=== PATIENT | female | born 1960 | race Caucasian/White ===

== ENCOUNTER → 2022-03-16 | Outpatient (REF) | payer OTHER ==
[2022-03-16 12:12] LABS: BASO % 0.8 % (0.0-1.0); EOS # 0.4 10^3/uL (0.0-0.5); EOS % 7.2 % (0.0-3.0); HEMATOCRIT 44.4 % (36.0-47.0); HEMOGLOBIN 14.8 g/dl (12.0-15.5); LYMPH # 1.6 10^3/uL (1.5-5.0); LYMPH % 29.9 % (24.0-44.0); MEAN CORPUSCULAR HEMOGLOBIN 30.2 pg (27.0-33.0); MEAN CORPUSCULAR HGB CONC 33.3 g/dl (32.0-36.5); MEAN CORPUSCULAR VOLUME 90.6 fl (80.0-96.0); MONO # 0.4 10^3/uL (0.0-0.8); MONO % 8.3 % (2.0-8.0); NEUTROPHILS # 2.9 10^3/uL (1.5-8.5); NEUTROPHILS % 53.8 % (36.0-66.0); PLATELET COUNT, AUTOMATED 188 10^3/uL (150-450); WHITE BLOOD COUNT 5.3 10^3/uL (4.0-10.0)
[2022-03-16 15:16] LABS: ALBUMIN 3.8 GM/DL (3.2-5.2); ALT/SGPT 34 U/L (12-78); BILIRUBIN,TOTAL 0.5 MG/DL (0.2-1.0); BLOOD UREA NITROGEN 15 MG/DL (7-18); CALCIUM LEVEL 9.5 MG/DL (8.8-10.2); CARBON DIOXIDE LEVEL 28 MEQ/L (21-32); CHLORIDE LEVEL 109 MEQ/L (98-107); CHOLESTEROL LEVEL 187 MG/DL (<200); CHOLESTEROL RISK RATIO 3.339 (<5); CREATININE FOR GFR 0.88 MG/DL (0.55-1.30); GLOMERULAR FILTRATION RATE > 60.0 (>45); GLUCOSE, FASTING 84 MG/DL (70-100); HDL CHOLESTEROL 56 MG/DL (>40); LDL CHOLESTEROL 107 MG/DL (<100); MAGNESIUM LEVEL 2.1 MG/DL (1.8-2.4); NON-HDL-C 131 MG/DL; POTASSIUM SERUM 4.3 MEQ/L (3.5-5.1); SODIUM LEVEL 144 MEQ/L (136-145); TOTAL PROTEIN 6.5 GM/DL (6.4-8.2); TRIGLYCERIDES LEVEL 119 MG/DL (<150)
[2022-03-16 15:17] LABS: HEMOGLOBIN A1c 5.3 %
[2022-03-18 14:10] LABS: H PYLORI SERUM QUANT IGA <9.0 units (0.0-8.9); H PYLORI SERUM QUANT IGM <9.0 units (0.0-8.9); H PYLORI SERUM QUANT IgG ABY 0.27 (0.00-0.79); VITAMIN D 1,25 DIHYDROXY 72.7 pg/mL (24.8-81.5)
== END ==
LOC: M SFHCCLAY 09:07
PROVIDERS: ATTEND Family Medicine
DX: E78.2 Mixed hyperlipidemia (principal); R73.01 Impaired fasting glucose; R10.13 Epigastric pain; K21.00 Gastro-esophageal reflux disease with esophagitis, without bleeding; Z13.21 Encounter for screening for nutritional disorder

== ENCOUNTER → 2022-04-13 | Outpatient (REF) | payer OTHER | LOC: M SFHCCLAY 10:42 | PROVIDERS: ATTEND Family Medicine | DX: Z13.21 Encounter for screening for nutritional disorder (principal) ==

== ENCOUNTER → 2022-05-06 | Outpatient (CLI) | payer BC | LOC: M CLY 11:46 | PROVIDERS: ATTEND Physician Assistant | DX: R50.9 Fever, unspecified (principal) ==

== ENCOUNTER → 2022-09-20 | Outpatient (REF) | payer OTHER ==
[~2022-09-20] MED LIST: AJOV225I SC; ALPR0.5T3 PO; BOTO10VL INJ; COQ-100C5 PO; CVS1CAP2 PO; CYCL-707 PO; IBAN150T6 PO; IPRA6SP; LOTE0.5S OU; MAGN500T2 PO; OMEP40CA4 PO; ONDA8TAB8 PO; OSTETAB2 PO; REST0.05 OU; ROSU20TA5 PO; TEMA30CA PO; UBRO100T PO; VITMTA PO; ZOMI5TAB12 PO; medical marijuana; vitamin b2 PO
== END ==
LOC: M SFHCCLAY 09:14
PROVIDERS: ATTEND Physician Assistant
DX: R30.0 Dysuria (principal)

== ENCOUNTER → 2022-11-02 | Outpatient (CLI) | payer BC, OTHER | LOC: M PLAIMG 13:06 | PROVIDERS: ATTEND Internal Medicine Pulmonary Disease | DX: R05.9 Cough, unspecified (principal) ==

== ENCOUNTER 2023-02-01 07:45 | Day surgery (SDC) | payer BC, OTHER ==
[~2023-02-01] VITALS: Ht 170.2 cm; Wt 64.3 kg
[~2023-02-01 07:45] MED LIST changes: +COQ150CH PO; +LIDOCAINE 2% 100MG/5ML SDV (FOR ANES.) As Ordered ONE; +NS 1,000 ML IV ONE; -ROSU20TA5 PO; +ROSU20TA61 PO; +fentaNYL 100 MCG/2 ML INJECTION As Ordered ONE; +propofoL 200 MG/20 ML VIAL As Ordered ONE
[2023-02-01] MEDS ORDERED: LIDOCAINE 2% 100MG/5ML SDV (FOR ANES.) As Ordered ONE (08:17)
[2023-02-01] MEDS ORDERED: ONDANSETRON 4MG 2ML VIAL As Ordered ONE (08:17)
[2023-02-01] MEDS ORDERED: fentaNYL 100 MCG/2 ML INJECTION As Ordered ONE (08:17)
[2023-02-01] MEDS ORDERED: propofoL 500 MG/50 ML VIAL As Ordered ONE (08:17)
[2023-02-01] MEDS ORDERED: ePHEDrine SULFATE 25 MG/5 ML(5MG/ML) SYRINGE As Ordered ONE (09:08)
[2023-02-01 09:43] VITALS: TEMP 97.5
[2023-02-01 10:17] VITALS: BP 104/65; O2SAT 97
== END 2023-02-01 10:19 | disposition home or self-care (01) ==
LOC: M OPP 07:45
PROVIDERS: ATTEND Internal Medicine Gastroenterology
DX: Z12.11 Encounter for screening for malignant neoplasm of colon (principal); Z80.0 Family history of malignant neoplasm of digestive organs; K64.0 First degree hemorrhoids; K57.30 Diverticulosis of large intestine without perforation or abscess without bleeding; R12 Heartburn; K44.9 Diaphragmatic hernia without obstruction or gangrene; I48.91 Unspecified atrial fibrillation; J45.909 Unspecified asthma, uncomplicated; K21.9 Gastro-esophageal reflux disease without esophagitis; Z88.0 Allergy status to penicillin; Z88.2 Allergy status to sulfonamides; Z88.5 Allergy status to narcotic agent; Z88.8 Allergy status to other drugs, medicaments and biological substances
CPT/HCPCS: 43239; 45378; 88305; J2405; J3010

== ENCOUNTER → 2023-02-27 | Outpatient (REF) | payer OTHER ==
[~2023-02-27] MED LIST changes: -LIDOCAINE 2% 100MG/5ML SDV (FOR ANES.) As Ordered ONE; -NS 1,000 ML IV ONE; -fentaNYL 100 MCG/2 ML INJECTION As Ordered ONE; -propofoL 200 MG/20 ML VIAL As Ordered ONE
[2023-02-27 13:09] LABS: HEMATOCRIT 40.8 % (36.0-47.0); HEMOGLOBIN 13.7 g/dl (12.0-15.5); MEAN CORPUSCULAR HEMOGLOBIN 29.7 pg (27.0-33.0); MEAN CORPUSCULAR HGB CONC 33.6 g/dl (32.0-36.5); MEAN CORPUSCULAR VOLUME 88.5 fl (80.0-96.0); PLATELET COUNT, AUTOMATED 154 10^3/uL (150-450); RED BLOOD COUNT 4.61 10^6/uL (4.00-5.40); WHITE BLOOD COUNT 5.2 10^3/uL (4.0-10.0)
[2023-02-27 13:23] LABS: HEMOGLOBIN A1c 4.9 % (4.0-6.0)
[2023-02-27 13:55] LABS: ALBUMIN 3.7 G/DL (3.2-5.2); ALKALINE PHOSPHATASE 38 U/L (46-116); ALT/SGPT 43 U/L (7.0-40); AST/SGOT 39 U/L (<34); BILIRUBIN,TOTAL 0.5 MG/DL (0.3-1.2); BLOOD UREA NITROGEN 14 MG/DL (9-23); CALCIUM LEVEL 9.1 MG/DL (8.3-10.6); CARBON DIOXIDE LEVEL 28 MMOL/L (20-31); CHLORIDE LEVEL 110 MMOL/L (98-107); CHOLESTEROL LEVEL 145 MG/DL (<200); CHOLESTEROL RISK RATIO 2.76 (<5); CREATININE FOR GFR 0.85 MG/DL (0.55-1.30); GLOMERULAR FILTRATION RATE > 60.0 (>45); GLUCOSE, FASTING 72 MG/DL (74-106); HDL CHOLESTEROL 52.4 MG/DL (>40); LDL CHOLESTEROL 78.4 MG/DL (<100); MAGNESIUM LEVEL 1.8 MG/DL (1.8-2.4); NON-HDL-C 92.6 MG/DL; POTASSIUM SERUM 4.2 MMOL/L (3.5-5.1); SODIUM LEVEL 141 MMOL/L (136-145); TOTAL PROTEIN 6.1 G/DL (5.7-8.2); TRIGLYCERIDES LEVEL 71 MG/DL (<150)
== END ==
LOC: M SFHCCLAY 08:53
PROVIDERS: ATTEND Family Medicine
DX: E78.2 Mixed hyperlipidemia (principal); K21.00 Gastro-esophageal reflux disease with esophagitis, without bleeding; R73.01 Impaired fasting glucose

== ENCOUNTER → 2023-03-28 | Outpatient (REF) | payer MEDICARE, BC, OTHER | LOC: M SFHCDERM 14:08 | PROVIDERS: ATTEND Physician Assistant | DX: L82.0 Inflamed seborrheic keratosis (principal) ==

== ENCOUNTER → 2023-04-03 | Outpatient (REF) | payer MEDICARE, OTHER | LOC: M SFHCWAGY 17:34 | PROVIDERS: ATTEND Nurse Practitioner Family | DX: Z12.4 Encounter for screening for malignant neoplasm of cervix (principal); N95.2 Postmenopausal atrophic vaginitis | CPT/HCPCS: 87624; G0123 ==

== ENCOUNTER → 2023-04-11 | Outpatient (CLI) | payer MEDICARE, BC, OTHER | LOC: M PLAIMG 10:53 | PROVIDERS: ATTEND Family Medicine | DX: M47.26 Other spondylosis with radiculopathy, lumbar region (principal) ==

== ENCOUNTER → 2023-06-02 | Outpatient (REF) | payer MEDICARE, BC, OTHER | LOC: M SFHCCLAY 10:33 | PROVIDERS: ATTEND Family Medicine | DX: Z53.9 Procedure and treatment not carried out, unspecified reason (principal) ==

== ENCOUNTER → 2024-05-06 | Outpatient (CLI) | payer MEDICARE, BC ==
[~2024-05-06] MED LIST changes: +IBAN150T10 PO; -IBAN150T6 PO; +ONDA-284 PO; -ONDA8TAB8 PO; -ROSU20TA61 PO; +ROSU20TA86 PO
== END ==
LOC: M WHC 15:10
PROVIDERS: ATTEND Nurse Practitioner Family
DX: Z13.820 Encounter for screening for osteoporosis (principal); M85.89 Other specified disorders of bone density and structure, multiple sites

== ENCOUNTER → 2024-07-18 | Outpatient (REF) | payer MEDICARE, BC ==
[2024-07-18 12:39] LABS: BASO % 0.6 % (0.0-1.0); EOS # 0.2 10^3/uL (0.0-0.5); EOS % 4.2 % (0.0-3.0); HEMATOCRIT 44.7 % (36.0-47.0); HEMOGLOBIN 14.7 g/dl (12.0-15.5); LYMPH # 1.4 10^3/uL (1.5-5.0); LYMPH % 27.2 % (24.0-44.0); MEAN CORPUSCULAR HEMOGLOBIN 28.9 pg (27.0-33.0); MEAN CORPUSCULAR HGB CONC 32.9 g/dl (32.0-36.5); MEAN CORPUSCULAR VOLUME 87.8 fl (80.0-96.0); MONO # 0.5 10^3/uL (0.0-0.8); MONO % 9.2 % (2.0-8.0); NEUTROPHILS % 58.4 % (36.0-66.0); PLATELET COUNT, AUTOMATED 197 10^3/uL (150-450); RED BLOOD COUNT 5.09 10^6/uL (4.00-5.40); WHITE BLOOD COUNT 5.2 10^3/uL (4.0-10.0)
[2024-07-18 12:48] LABS: ALBUMIN 3.9 G/DL (3.2-5.2); ALKALINE PHOSPHATASE 47 U/L (35-104); ALT/SGPT 36 U/L (7.0-40); AST/SGOT 28 U/L (<34); BILIRUBIN,TOTAL 0.3 MG/DL (0.3-1.2); BLOOD UREA NITROGEN 17 MG/DL (9-23); CARBON DIOXIDE LEVEL 30 MMOL/L (20-31); CHLORIDE LEVEL 106 MMOL/L (98-107); CHOLESTEROL LEVEL 116 MG/DL (<200); FREE T4 1.79 NG/DL (0.89-1.76); GLOMERULAR FILTRATION RATE > 60.0 (>45); GLUCOSE, FASTING 92 MG/DL (74-106); HDL CHOLESTEROL 48.3 MG/DL (>40); LDL CHOLESTEROL 46.5 MG/DL (<100); MAGNESIUM LEVEL 2.4 MG/DL (1.8-2.4); NON-HDL-C 67.7 MG/DL; POTASSIUM SERUM 4.6 MMOL/L (3.5-5.1); SODIUM LEVEL 143 MMOL/L (136-145); TOTAL PROTEIN 6.5 G/DL (5.7-8.2); TOTAL T3 149.4 NG/DL (60.0-181.0); TRIGLYCERIDES LEVEL 106 MG/DL (<150)
[2024-07-18 12:59] LABS: HEMOGLOBIN A1c 5.4 % (4.0-6.0)
== END ==
LOC: M SFHCCLAY 08:15
PROVIDERS: ATTEND Family Medicine
DX: E78.2 Mixed hyperlipidemia (principal); R73.01 Impaired fasting glucose; K21.00 Gastro-esophageal reflux disease with esophagitis, without bleeding; R10.11 Right upper quadrant pain; K58.9 Irritable bowel syndrome, unspecified

== ENCOUNTER → 2024-08-09 | Outpatient (CLI) | payer MEDICARE, BC | LOC: M RAD 10:14 | PROVIDERS: ATTEND Family Medicine | DX: G43.109 Migraine with aura, not intractable, without status migrainosus (principal); R42 Dizziness and giddiness; R10.11 Right upper quadrant pain; I65.23 Occlusion and stenosis of bilateral carotid arteries ==

== ENCOUNTER → 2024-08-26 | Outpatient (CLI) | payer MEDICARE, BC ==
[~2024-08-26] MED LIST changes: +GADOXETATE DISODIUM 2.5MMOL/10ML VIAL (EOVIST) As Ordered ONE
== END ==
LOC: M RAD 09:14
PROVIDERS: ATTEND Family Medicine
DX: K76.9 Liver disease, unspecified (principal)
CPT/HCPCS: 74183; A9581

== ENCOUNTER → 2025-01-31 | Outpatient (CLI) | payer MEDICARE, BC ==
[~2025-01-31] MED LIST changes: -GADOXETATE DISODIUM 2.5MMOL/10ML VIAL (EOVIST) As Ordered ONE
== END ==
LOC: M CLY 09:16
PROVIDERS: ATTEND Family Medicine
DX: R05.2 Subacute cough (principal)

== ENCOUNTER → 2025-04-24 | Outpatient (CLI) | payer MEDICARE, BC | LOC: M RAD 16:47 | PROVIDERS: ATTEND Physician Assistant | DX: R91.8 Other nonspecific abnormal finding of lung field (principal) ==

== ENCOUNTER → 2025-05-05 | Outpatient (REF) | payer MEDICARE, BC | LOC: M SFHCDERM 16:32 | PROVIDERS: ATTEND Physician Assistant | DX: L72.0 Epidermal cyst (principal) ==

== ENCOUNTER → 2025-05-13 | Outpatient (CLI) | payer MEDICARE, BC ==
[~2025-05-13] MED LIST changes: +METHACHOLINE KIT (6 VIAL.NEB PREMIX) INH ONE
== END ==
LOC: M CARPUL 07:37
PROVIDERS: ATTEND Physician Assistant
DX: R05.3 Chronic cough (principal)
CPT/HCPCS: 94070; 95070; J7674